=== PATIENT | male | born 1975 | race Native Hawaiian/Other Pacific Islander ===

== ENCOUNTER 2019-03-06 17:50 | Emergency (ER) | payer OTHER ==
[~2019-03-06] VITALS: Ht 180.3 cm; Wt 108.0 kg
[2019-03-06 17:59] VITALS: BP 162/101; TEMP 97.9
== END 2019-03-06 18:28 | disposition home or self-care (01) ==
LOC: ED 17:50
DX: H65.191 Other acute nonsuppurative otitis media, right ear (principal)
CPT/HCPCS: 99282